=== PATIENT | female | born 1990 | race Hispanic/Latino ===

== ENCOUNTER 2021-05-09 19:08 | Emergency (ER) | payer SELFPAY ==
--- OUTSIDE RECORDS SUMMARY | 2021-05-09 19:12 | XMS REPORT | Continuity of Care Document ---
:[address] [facility] t Address [address] [place] [address] Care Team Providers Name Role Phone No MD, Pcp Primary Care Physician Unavailable RASHEED ELAINE Attending Clinician Unavailable DOLLY AZEVEDO Attending Clinician Unavailable Payers Payer Name Policy Type Policy Number Effective Date Expiration Date S ource OPEN ACCESS [employer]ET[employer] [id number] 2012 00:00:00 [employer] E[employer] HMO [id number] 2018 00:00:00 Problems Condition Condition Condition Status Onset Resolution Last Treating Co mments Source Name Details Category Date Date Treatment Clinician Date Strain of Strain of Disease Active 2020-04 [place] [facility]al peroneal 04-22 [facility] tendon of tendon of 00:00: right foot right foot 00 Foot pain, Foot pain, Disease Active 2020-04 [facility] right right 04-22 Health 00:00: 00 Allergies, Adverse Reactions, Alerts Allergy Allergy Status Severity Reaction(s) Onset Inactive Treating Comm ents Source Name Type Date Date Clinician Penic[facility] DA Active [facility] [place] PENICILL DRUG Active Low Rash 2017-04 [facility] [place] [facility] Penicill Allergy Active Rash 2017-04 [place] ins to 05-04 [facility] 00:00: e 00 Social History Social Habit Start Date Stop Date Quantity Comments Source Exposure to Not sure [facility] SARS-CoV-2 (event) Alcohol intake 2021-02-20 2021-02-20 Current drinker of [facility] 00:00:00 00:00:00 alcohol (finding) Tobacco use and 2021-02-12 2021-02-12 Smokeless tobacco [facility] exposure 00:00:00 00:00:00 non-user Sex Assigned At [birth year] [facility] 00:00:00 00:00:00 Smoking Status Start Date Stop Date Source Never smoked tobacco [facility] Medications Ordered Filled Start Stop Current Ordering Indication Dosage Frequency Signature Comments Components Source Medication Medication Date Date Medication? Clinician (SIG) Name Name lidocaine 2020-04- No [id number] 1mL [facility] (Xylocaine) 02-12 Health 1 % 14:59: 14:59 injection 1 22 :00 mL betamethaso 2020-04- No [id number] 30mg [facility] ne 02-12 Health acetate-bet 14:59: 14:59 amethasone 22 :00 sodium phosphate (Celestone) injection 30 mg betamethaso 2020-04- No [id number] 30mg 30 mg, [facility] ne 02-12 [facility] acetate-bet 14:59: 14:59 cular, amethasone 22 :00 Once PRN sodium Procedure, phosphate Starting (Celestone) on Wed injection 02/12/21 30 mg at 0959, For 1 dose lidocaine 2020-04- No [id number] 1mL 1 mL, U T (Xylocaine) 02-12 Injection, H ealth 1 % 14:59: 14:59 Once PRN injection 1 22 :00 Procedure, mL Starting on Wed02/12/21 at 0959, For 1 dose meloxicam 2020-04 Yes 1 TABLET [facility] (Mobic) 7.5 [facility] MG tablet 09:31: ONCE A DAY 32 30 DAY(S) Vital Signs Vital Name Observation Time Observation Value Comments Source Body height 2021-02-12 14:30:00 157.5 cm [facility] Body weight 2021-02-12 14:30:00 77.111 kg [facility] BMI 2021-02-12 14:30:00 31.09 kg/m2 [facility] Procedures Procedure Date / Time Performed Performing Clinician Sourc e [facility] ARTHROCENTESIS ASPIR&/INJ 2021-02-12 14:59:22 Jordan Elaine [facility] JT/BURSA W/O US Encounters Start End Encounter Admission Attending Care Care Encounter Source Date/Time Date/Time Type Type Clinicians Facility Department ID 2021-02-12 Outpatient JAK [facility] [id number] [place] 10:31:31 [facility] 2021-01-21 Outpatient JAK [facility] [id number] [place] 13:40:06 [facility] 2021-02-12 2021-02-12 Office HILARIO Elaine [facility] [id number] [place] 08:51:06 13:18:32 Visit [facility] [id number] H [facility] [id number] [address] [id number] 2021-01-29 2021-01-29 Outpatient [facility] [id number] [facility] 2021-01-22 2021-01-22 Outpatient [facility] [id number] [facility] 2021-01-20 2021-01-20 Outpatient [facility] [id number] [facility] 2020-11-12 2020-11-12 Outpatient [facility] [id number] [facility] 2020-11-08 2020-11-08 Outpatient [facility] [id number] [facility] 2020-10-29 2020-10-29 Outpatient [facility] [id number] [facility] 2020-07-22 2020-07-22 Outpatient Santy AZEVEDO [facility] [id number] [facility] 10:30:00 10:30:00 [facility] 2020-06-24 2020-06-24 Outpatient Santy AZEVEDO [facility] [id number] [facility] 10:40:00 10:40:00 [facility] 2020-06-24 2020-06-24 Outpatient Santy AZEVEDO [facility] [id number] [facility] 10:40:00 10:40:00 [facility] 2020-06-10 2020-06-10 Out[facility] [id number] [facility] 2020-05-30 2020-05-30 Out[facility] [id number] [facility] 2020-05-17 2020-05-17 Out[facility] [id number] [facility] 2020-05-14 2020-05-14 Out[facility] [id number] [facility] 2020-04-25 2020-04-25 Out[facility] [id number] [facility] Results Test Description Test Time Test Comments Results Result Comments Source HGB HCT 2018-09-25 05:50:00 Test Item Value Reference Range Interpretation Comme nts HEMOGLOBIN (test code = HGB) 7.1 g/dL 10.7-13.9 L HEMATOCRIT (test code = HCT) 22.5 % 32.1-42.1 L HGB [id number] 07:52:00 Test Item Value Reference Range Interpretation Comments HEMOGLOBIN (test code = 7.2 g/dL 10.7-13.9 L Resu lts verified by HGB) repeat analysis HEMATOCRIT (test code = 23.0 % 32.1-42.1 L Resu lts verified by HCT) repeat analysis AG HEPATITIS B [id number] 11:27:00 Test Item Value Reference Range Interpretation Comments AG HEPATITIS B SURFACE (test code NONREACTIVE NONREACTIVE = HBSAG) IS CONSENT FORM SIGNED FOR HIV TESTING? YAB HEPATITIS C [id number] 11:27:00 Test Item Value Reference Range Interpretation Comments AB HEPATITIS C (test code = NONREACTIVE NONREACTIVE HCVAB) SIGNAL TO CUTOFF (test code = 0.08 <0.80 N CUTOFF) IS CONSENT FORM SIGNED FOR HIV TESTING? YAB [id number] 11:27:00 Test Item Value Reference Range Interpretation Comments AB TREPONEMA (test code = TREPAB) NONREACTIVE NONREACTIVE IS CONSENT FORM SIGNED FOR HIV TESTING? YAB HIV 1 11:27:00 Test Item Value Reference Range Interpretation Comments AB HIV 1 2 (test NONREACTIVE NONREACTIVE [facility] [id number]) 4th Gen HIV Ag/Ab Combo Screen IS CONSENT FORM SIGNED FOR HIV TESTING? YAG HEPATITIS B [id number] 09:55:00 Test Item Value Reference Range Interpretation Comments AG HEPATITIS B SURFACE (test code NONREACTIVE NONREACTIVE = HBSAG) IS CONSENT FORM SIGNED FOR HIV TESTING? LASHAUNB HEPATITIS C [id number] 09:55:00 Test Item Value Reference Range Interpretation Comments AB HEPATITIS C (test code = HCVAB) NONREACTIVE SIGNAL TO CUTOFF (test code = CUTOFF) <0.80 IS CONSENT FORM SIGNED FOR HIV TESTING? YAB [id number] 09:55:00 Test Item Value Reference Range Interpretation Comments AB TREPONEMA (test code = TREPAB) NONREACTIVE NONREACTIVE IS CONSENT FORM SIGNED FOR HIV TESTING? YAB HIV 1 09:55:00 Test Item Value Reference Range Interpretation Comments AB HIV 1 2 (test code = OPY90AB) NONREACTIVE IS CONSENT FORM SIGNED FOR HIV TESTING? YCBC W/AUTO [id number] 09:13:00 Test Item Value Reference Range Interpretation Comments WHITE BLOOD CELL (test code = WBC) 15.1 K/mm3 6.6-12.1 H RED BLOOD CELL (test code = RBC) 3.65 M/mm3 3.45-5.01 N HEMOGLOBIN (test code = HGB) 9.3 g/dL 10.7-13.9 L HEMATOCRIT (test code = HCT) 29.4 % 32.1-42.1 L MEAN CELL VOLUME (test code = MCV) 81 fL 84.1-94.8 L MEAN CELL HGB (test code = MCH) 25.5 pg 27-35 L MEAN CELL HGB CONCETRATION (test 31.6 gm/dL 32.2-34.1 L code = MCHC) RED CELL DISTRIBUTION WIDTH (test 13.5 % 12.4-16.5 N code = RDW) PLATELET COUNT (test code = PLT) 349 K/mm3 133-385 N IMMATURE PLATELET FRACTION (test 0.0 % 0.0-10.8 N code = IPF) MEAN PLATELET VOLUME (test code = 9.7 fl 9.1-12.7 N MPV) NEUTROPHIL % (test code = NT%) 79.1 % 56.5-79.4 N LYMPHOCYTE % (test code = LY%) 12.6 % 14.3-34.3 L MONOCYTE % (test code = MO%) 5.4 % 5.1-10.4 N EOSINOPHIL % (test code = EO%) 1.0 % 0.1-3.0 N BASOPHIL % (test code = BA%) 0.2 % 0.1-1.0 N NEUTROPHIL # (test code = NT#) 11.9 K/mm3 LYMPHOCYTE # (test code = LY#) 1.9 K/mm3 MONOCYTE # (test code = MO#) 0.8 K/mm3 EOSINOPHIL # (test code = EO#) 0.15 K/mm3 BASOPHIL # (test code = BA#) 0.0 K/mm3 RBC MORPHOLOGY REQUIRED (test code NORMAL NORMAL = RBCM) PLATELET MORPHOLOGY REQUIRED (test NORMAL NORMAL code = PLTMR)
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
[2021-05-09 20:40] VITALS: BP 114/79; TEMP 98.7; O2SAT 100
== END 2021-05-09 20:09 | disposition left against medical advice (07) ==
LOC: ER 19:08
DX: Z53.21 Procedure and treatment not carried out due to patient leaving prior to being seen by health care provider (principal)
CPT/HCPCS: 99282